=== PATIENT | female | born 1965 | race Caucasian/White ===

== ENCOUNTER 2020-12-03 09:41 | Emergency (ER) | payer OTHER, SELFPAY ==
[2020-12-03 09:45] VITALS: BP 136/80; PULSE 98; RESP 16; TEMP 37.3; O2SAT 98; BMI 28.6
--- NOTE | 2020-12-03 09:48 | HMH.EDGENADL ---
ED Disposition Clinical Impression: Tendinitis of shoulder Disposition: Home, Self-Care Condition on Discharge: Good Instructions: Sprain Additional Instructions: Needed if pain continues beyond 7 days you have to be referred to physical therapy. Prescriptions: Etodolac [Lodine 400mg Tab] 400 mg PO TID 10 Days #30 tab Prescription Printed Referrals: Kerrie Jiménez [Primary Care Provider] - - Critical Care Critical Care Time: No Attestation: On , the high probability of a clinically significant, sudden or life threatening deterioration of the following system(s) required my full and direct attention, intervention and personal management. The time I documented below is in addition to time spent performing reported procedures but includes the following listed in this critical care notation. Medical Decision Making - Medical Records MR Comment: X-ray of the left shoulder was negative. Physical exam is consistent with supraspinatus tendinitis. She has Pineda signs positive in tenderness on palpation at the supraspinatus tendon. There was no effusion of the shoulder and no erythema around it. - Tomas Inquiry Pt receiving controlled substance: No Tomas was queried for this patient: No Vital Signs: 12/03/20 09:45 Temperature 99.2 F Temperature Source Oral Pulse Rate [Right] 98 H Respiratory Rate 16 Blood Pressure [Right Arm] 136/80 Blood Pressure Mean [Right Arm] 98 02 Sat by Pulse Oximetry 98 Oxygen Delivery Method Room Air Orders (Tests/Meds): ORDERS Category Date Time Status XR shoulder LT min 2V Stat Exams 12/03/20 10:20 Ordered General Adult HPI - General Stated complaint: wc injured left shoulder Time Seen by Provider: 12/03/20 09:50 Source of Information: Patient Limitations: No Limitations - History of Present Illness HPI narrative: This 55-year-old female walked to the emergency room complaining of left shoulder pain. 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 Pain exacerbated with elevation and abduction movement. No fall injuries. No prior history of back pain or shoulder pain. She said she was diagnosed with rheumatoid arthritis few years ago. The pain is localized on the supraspinatus tendon area mainly. No erythema. No fever or chills no chest pain. no history of coronary artery disease. - Related Data Previous Rx's Medication Instructions Recorded Etodolac [Lodine 400mg Tab] 400 mg PO TID 10 Days #30 tab 12/03/20 Allergies Allergy/AdvReac Type Severity Reaction Status Date / Time No Known Allergies Allergy Unverified 01/03/18 18:41 [facility] History - Hepatitis A Screen Attestation statement:: This patient has been screened for Hepatitis A risk factors. ROS Obtained: Yes All systems reviewed & no additional complaints - Constitutional Constitutional: Reports system reviewed and no additional complaints, except as docu - Eyes Eyes: Reports system reviewed and no additional complaints, except as docu - ENT Ears, Nose, Mouth, and Throat: Reports system reviewed and no additional complaints, except as docu - Cardiovascular Cardiovascular: Reports system reviewed and no additional complaints, except as docu - Respiratory Respiratory: Reports system reviewed and no additional complaints, except as docu - Gastrointestinal Gastrointestingal: Reports: system reviewed and no additional complaints, except as docu - Musculoskeletal Musculoskeletal: Reports system reviewed and no additional complaints, except as docu, Reports other (Left shoulder pain that is exacerbated with movement) - Integumentary/Breasts Skin/Breast: Reports system reviewed and no additional complaints, except as docu - Neurologic Neurologic: Reports system reviewed and no additional complaints, except as docu - Endocrine Endocrine: Reports system reviewed and no additional complaints, except as
--- NOTE | 2020-12-03 10:20 | XR_ITS ---
PROCEDURE: XR SHOULDER LT MIN 2V CLINICAL INDICATION: pushing grocery cart and hurt shoulder COMPARISON: No exams were available for comparison FINDINGS: No fracture or dislocation. No lytic or blastic change. There is normal mineralization. The joint spaces are well-preserved. No significant degenerative/arthritic changes. No erosive changes evident. Other findings:None. IMPRESSION: No acute findings. Dictated by: Leonel Guevara MD 12/03/2020 12:32 Leonel Guevara MD in [place] 12/03/2020 12:32
[2020-12-03 10:48] VITALS: BP 125/77; PULSE 81; RESP 18; TEMP 37.3
== END 2020-12-03 10:51 | disposition home or self-care (01) ==
LOC: ER 10:23
PROVIDERS: Emergency Provider Internal Medicine; PCP Family Medicine
DX: S43.402A Unspecified sprain of left shoulder joint, initial encounter (principal); X50.0XXA Overexertion from strenuous movement or load, initial encounter; Y92.69 Other specified industrial and construction area as the place of occurrence of the external cause; Y99.0 Civilian activity done for income or pay
CPT/HCPCS: 73030; 99281; 99282